=== PATIENT | female | born 1960 | race Two or more races ===

== ENCOUNTER 2018-12-05 10:54 | Outpatient (CLI) | payer OTHER | END 2018-12-05 11:54 | disposition home or self-care (01) | LOC: MRI 10:54 | DX: F09 Unspecified mental disorder due to known physiological condition (principal); F03.90 Unspecified dementia, unspecified severity, without behavioral disturbance, psychotic disturbance, mood disturbance, and anxiety; R41.3 Other amnesia; G44.209 Tension-type headache, unspecified, not intractable; R51 Headache | CPT/HCPCS: 70551 ==

== ENCOUNTER 2019-01-30 12:25 | Outpatient (CLI) | payer OTHER | END 2019-01-30 15:43 | disposition home or self-care (01) | LOC: MRI 12:25 | DX: I72.8 Aneurysm of other specified arteries (principal) | CPT/HCPCS: 70544 ==

== ENCOUNTER → 2019-06-11 | Outpatient (CLI) | payer OTHER | END | disposition home or self-care (01) | LOC: MRI 12:27 | DX: G93.0 Cerebral cysts (principal); R47.81 Slurred speech | CPT/HCPCS: 70551 ==

== ENCOUNTER 2020-06-22 11:07 | Outpatient (CLI) | payer OTHER | END 2020-06-22 11:21 | disposition home or self-care (01) | LOC: MRI 11:07 | PROVIDERS: ATTEND Neuromusculoskeletal Medicine & OMM | DX: R42 Dizziness and giddiness (principal) | CPT/HCPCS: 70551 ==

== ENCOUNTER 2020-07-28 13:13 | Outpatient (CLI) | payer OTHER | END 2020-07-28 13:35 | disposition home or self-care (01) | LOC: MRI 13:13 | PROVIDERS: ATTEND Neuromusculoskeletal Medicine & OMM | DX: M50.20 Other cervical disc displacement, unspecified cervical region (principal); M50.30 Other cervical disc degeneration, unspecified cervical region; M51.26 Other intervertebral disc displacement, lumbar region; M51.36 Other intervertebral disc degeneration, lumbar region | CPT/HCPCS: 72141; 72148 ==

== ENCOUNTER → 2022-11-08 | Outpatient (CLI) | payer OTHER | END | disposition home or self-care (01) | LOC: MRI 12:15 | PROVIDERS: ATTEND Neuromusculoskeletal Medicine & OMM | DX: F09 Unspecified mental disorder due to known physiological condition (principal); F03.90 Unspecified dementia, unspecified severity, without behavioral disturbance, psychotic disturbance, mood disturbance, and anxiety | CPT/HCPCS: 70551 ==